=== PATIENT | male | born 1965 | race Caucasian/White ===

== ENCOUNTER 2017-06-21 06:51 | Day surgery (SDC) | payer MEDICARE, OTHER ==
[~2017-06-21 06:51] MED LIST: DIAZEPAM 5 MG TAB PO; DIPHENHYDRAMINE 50 MG CAP PO; FAMOTIDINE 20 MG TAB PO; SOD CHLORIDE 0.45% 1,000 ML IV
[2017-06-21 08:28] LABS: ADD MAN DIFF? NO
[2017-06-21 08:36] LABS: WHITE BLOOD COUNT 5.3 10^3/ul (4.8-10.8)
[2017-06-21 08:36] LABS: BASOPHIL # 0.1 10^3/ul (0.0-0.1); BASOPHILS % 1.3 % (0.0-2.0); EOSINOPHILS # 0.3 10^3/ul (0.0-0.5); EOSINOPHILS % 5.5 % (0.0-7.0); HEMATOCRIT 40.4 % (42.0-52.0); HEMOGLOBIN 13.7 g/dl (14.0-18.0); LYMPHOCYTES # 2.1 10^3/ul (0.8-2.9); LYMPHOCYTES % 39.1 % (15.0-51.0); MEAN CORPUSCULAR HEMOGLOBIN 28.9 pg (29.0-33.0); MEAN CORPUSCULAR HGB CONC 33.9 g/dl (32.0-37.0); MEAN CORPUSCULAR VOLUME 85.2 fl (82.0-101.0); MEAN PLATELET VOLUME 11.4 fl (7.4-10.4); MONOCYTE # 0.7 10^3/ul (0.3-0.9); MONOCYTES % 12.5 % (0.0-11.0); NEUTROPHIL # 2.2 10^3/ul (1.6-7.5); NEUTROPHILS % 41.4 % (39.0-77.0); PLATELET COUNT 197 10^3/UL (140-415); RED BLOOD COUNT 4.74 10^6/ul (4.70-6.10); RED CELL DISTRIBUTION WIDTH 13.4 % (11.5-14.5)
[2017-06-21 08:55] LABS: INR 1.02; PROTIME 13.5 Sec (11.9-14.9); PT RATIO 1.1
[2017-06-21 08:56] LABS: PARTIAL THROMBOPLASTIN TIME 31.1 Sec (25.0-35.0)
[2017-06-21 08:59] LABS: ALANINE AMINOTRANSFERASE 39 IU/L (13-69); ALBUMIN 4.6 g/dl (3.3-4.9); ALBUMIN/GLOBULIN RATIO 1.39; ALKALINE PHOSPHATASE 68 IU/L (42-121); ASPARTATE AMINO TRANSFERASE 33 IU/L (15-46); BILIRUBIN,INDIRECT 0.4 mg/dl (0-1.1); BILIRUBIN,TOTAL 0.4 mg/dl (0.2-1.3); CARBON DIOXIDE 27 mmol/L (21-31); CHLORIDE 108 mmol/L (97-110); CHOL/HDL RATIO 3.5 RATIO; CHOLESTEROL 147 mg/dl (100-200); GLUCOSE 93 mg/dl (70-220); HDL CHOLESTEROL 41 mg/dl (28-71); LDL CHOLESTEROL,CALCULATED 79 mg/dl; TOTAL PROTEIN 7.9 g/dl (6.1-8.1); TRIGLYCERIDES 133 mg/dl (0-149)
[2017-06-21 09:00] LABS: BLOOD UREA NITROGEN 19 mg/dl (7-20); CALCIUM 9.3 mg/dl (8.4-10.2); CREATININE 1.05 mg/dl (0.61-1.24); POTASSIUM 3.8 mmol/L (3.5-5.1)
[2017-06-21 09:05] LABS: ANION GAP 15 (8-16)
[2017-06-21 09:09] LABS: SODIUM 146 mmol/L (135-144)
[2017-06-21] MEDS ORDERED: MIDAZOLAM 1 MG/ML 2 ML INJ (09:16)
[2017-06-21] MEDS ORDERED: HEPARIN 1000 UNITS/ML 10 ML INJ (09:16)
[2017-06-21] MEDS ORDERED: LIDOCAINE 1% (MDV) 20 ML INJ (09:16)
[2017-06-21] MEDS ORDERED: FENTAnyl 50 MCG/ML VIAL (09:17)
[2017-06-21] MEDS ORDERED: SOD CHLORIDE 0.9% 500 ML (09:18)
[2017-06-21] MEDS ORDERED: IODIXANOL LOCM 100 ML BTL (10:35)
[2017-06-21] MEDS ORDERED: SOD CHLORIDE 0.9% 1,000 ML IV (10:58)
[2017-06-21] MEDS ORDERED: morphine 2 MG INJ IV (11:00)
[2017-06-21] MEDS ORDERED: ONDANSETRON 4 MG INJ IV (11:00)
[2017-06-21] MEDS ORDERED: AL HYDROX/MG HYDROX/SIMETH 30 ML CUP PO (11:00)
[2017-06-21] MEDS ORDERED: ACETAMINOPHEN 325 MG TAB PO (11:00)
== END 2017-06-21 14:20 | disposition home or self-care (01) ==
LOC: SDS 06:51
DX: I70.203 Unspecified atherosclerosis of native arteries of extremities, bilateral legs (principal); I70.0 Atherosclerosis of aorta
CPT/HCPCS: 36200; 71045; 75630; 80053; 80061; 85025; 85610; 85730

== ENCOUNTER → 2017-07-11 | Outpatient (CLI) | payer MEDICARE, OTHER | END | disposition home or self-care (01) | LOC: U/S 08:59 | DX: R10.9 Unspecified abdominal pain (principal) | CPT/HCPCS: 76856 ==